=== PATIENT | male | born 1980 | race Hispanic/Latino ===

== ENCOUNTER 2024-12-13 05:52 | Day surgery (SDC) | payer OTHER ==
[2024-12-11 09:20] LABS: BASOPHILS # (AUTO) 0.02 K/uL (0.00-0.20); BASOPHILS % (AUTO) 0.3 % (0.0-5.0); EOSINOPHILS # (AUTO) 0.18 K/uL (0.00-0.70); EOSINOPHILS % (AUTO) 2.9 % (0.0-8.0); HEMATOCRIT 48.3 % (42-54); IMMATURE GRANULOCYTE ABSOLUTE 0.03 K/uL (0-1); LYMPHOCYTES # (AUTO) 2.4 K/uL (1.0-4.8); LYMPHOCYTES % (AUTO) 38.3 % (21.0-51.0); MEAN CORPUSCULAR HEMOGLOBIN 28.7 pg (27.0-33.0); MEAN CORPUSCULAR HGB CONC 31.3 g/dL (32.0-36.0); MEAN CORPUSCULAR VOLUME 91.7 fL (79-99); MONOCYTES # (AUTO) 0.5 K/uL (0.1-1.0); MONOCYTES % (AUTO) 7.3 % (3.0-13.0); NEUTROPHILS # (AUTO) 3.1 K/uL (1.8-7.7); NEUTROPHILS % (AUTO) 50.7 % (40.0-77.0); PLATELET COUNT (AUTO) 132 K/uL (130-400); RED BLOOD CELL COUNT(AUTO) 5.27 MIL/uL (4.50-6.20); RED CELL DISTRIBUTION WIDTH 13.8 % (11.0-15.5); WHITE BLOOD COUNT (AUTO) 6.2 K/uL (4.8-10.8)
--- NOTE | 2024-12-11 09:23 | EKG ---
[facility] Test Date: 2024-12-11 Test Time: 09:06:57 Pat Name: FIDELIA YODER Department: [facility] Room: Gender: M Core Dipper: [id number] : 1980 Requested By: TAMERA CARDONA Order Number: [id number] Reading MD: Adelso Matthew Measurements Intervals [place] Rate: 63 P: 24 KS: 163 QRS: 35 QRSD: 94 T: 45 QT: 408 QTc: 419 Interpretive Statements Sinus rhythm No previous ECG available for comparison Electronically Signed On 12-11-2024 17:34:31 CDT by Adelso Matthew Please click the below link to view image of tracing.
[2024-12-11 09:27] VITALS: BP 118/72; PULSE 64; RESP 17; TEMP 97.5
[2024-12-11 09:35] LABS: INR 1.07 (0.85-1.15); PROTHROMBIN TIME 11.3 SEC (9.6-11.6)
[2024-12-11 09:36] LABS: PARTIAL THROMBOPLASTIN TIME 30.8 SEC (26.3-35.5)
[2024-12-11 09:41] LABS: POTASSIUM 5.2 mmol/L (3.5-5.1)
[2024-12-11 09:44] LABS: APPEARANCE,URINE CLEAR (CLEAR); BILIRUBIN,URINE NEGATIVE (NEGATIVE); COLOR,URINE LIGHT-YELLOW (YELLOW); GLUCOSE, URINE (UA) >=1000 mg/dL (NEGATIVE); KETONES,URINE NEGATIVE (NEGATIVE); LEUKOCYTE ESTERASE ,URINE NEGATIVE Leu/uL (NEGATIVE); NITRATE,URINE NEGATIVE (NEGATIVE); OCCULT BLOOD,URINE NEGATIVE (NEGATIVE); PH,URINE 6.5 (5.0-8.0); PROTEIN,URINE NEGATIVE (NEGATIVE); UROBILINOGEN,URINE 0.2 mg/dL (0.2-1.0)
[2024-12-11 09:47] LABS: ADD UA MICROSCOPIC YES
[2024-12-11 10:00] LABS: B-TYPE NATRIURETIC PEPTIDE 6 pg/mL (0-100)
[2024-12-11 10:02] LABS: RBC,URINE 0-1 /HPF (0-1); SQUAMOUS EPITHELIAL CELL,UR RARE /HPF (0-2); WBC,URINE 0-1 /HPF (0-1)
--- NOTE | 2024-12-11 10:41 | HMCIMG ---
Exam Type: CHEST 1VW Clinical Information: PREOP Comparison: None Findings: Well-circumscribed slightly dense nodule left mid lung periphery seen, probably benign. One-year follow-up recommended. The lungs are clear of infiltrates. The heart is normal in size. The bony and soft tissue structures of the chest are unremarkable. Impression: Well-circumscribed slightly dense nodule left mid lung periphery seen, probably benign. One-year follow-up recommended.
[~2024-12-13] VITALS: Ht 162.6 cm; Wt 110.8 kg
[2024-12-13] VITALS (10 sets, daily range): BP systolic 100–108; BP diastolic 56–70; PULSE 58–69; RESP 12–17; TEMP 97–97.5
[~2024-12-13 05:52] MED LIST: ASPI-1443 PO; ATOR40TA69 PO; DOXY100T2 PO; EMPA25TA PO; EZET10TA48 PO; FENO145T26 PO; INSU100I3 SQ; INSU100V37 SQ; LISI2.5T13 PO; METO-408 PO; PIOG30TA70 PO
[2024-12-13] MEDS ORDERED: 0.9%NACL 1000ML 1,000 ML IV SCH ×2 (06:30→10:00)
[2024-12-13] MEDS ORDERED: IOHEXOL 350 MG/ML 100ML INFUS..BTL IV ONE (07:04)
[2024-12-13] MEDS ORDERED: LIDOCAINE HCL 400MG/20ML VIAL ONE (07:04)
[2024-12-13] MEDS ORDERED: NITROGLYCERIN 50MG VIAL ONE (07:05)
[2024-12-13] MEDS ORDERED: HEParin 10,000 UNIT/10ML (1,000 UNIT/ML) VIAL ONE (07:05)
[2024-12-13] MEDS ORDERED: HEParin-NS 1,000 UNIT/500 ML 1,000 ML IV ONE (07:05)
[2024-12-13] MEDS ORDERED: niCARDIpine 25MG INJ IV ONE (07:29)
[2024-12-13] MEDS ORDERED: FENTanyl CITRate PF 50 MCG/1 ML 2ML VIAL ONE (07:38)
[2024-12-13] MEDS ORDERED: MIDAZOLAM HCL 1 MG/ML 2ML VIAL ONE (07:39)
[2024-12-13] MEDS ORDERED: ASPIRIN 325MG EC TAB PO ONE (08:41)
[2024-12-13] MEDS ORDERED: cloPIDOgrel 300MG TAB ONE (08:42)
[2024-12-13] MEDS ORDERED: HEParin-NS 1,000 UNIT/500 ML 500 ML IV ONE (08:52)
[2024-12-13] MEDS ORDERED: IOHEXOL-350 50ML VIAL IV ONE (09:03)
--- NOTE | 2024-12-13 09:47 | PRN ---
PROCEDURE NOTE Indications: Chest pain, CCS III symptoms HTN HLP Strong family history of heart disease Procedures: LHC, coronary angiogram, PCI with balloon angioplasty and LILA placement in the proximal LAD, OCT assessment pre and post stent deployment Introduction: After informed written consent was obtained, the patient was brought to the Catheterization Lab in the usual fasting state. Following sterile prep and drape, a time out was performed, then moderate sedation was administered, 1mg of Versed and 50mcg of Fentanyl, then 1% Lidocaine was infiltrated into the right wrist. Using a Modified Seldinger technique, a 6Fr Sheath was inserted into the right radial artery. While under fluoroscopic guidance, diagnostic coronary catheters were advanced over a wire into the central circulation where they were aspirated, flushed and placed to pressure monitoring, once the wire was removed. Coronary Angio: The left and right coronary arteries were engaged with appropriate catheters and angiography was performed under continuous pressure monitoring. Left Heart Catheterization: A JR4 catheter was inserted into the LV and the pressure was recorded, then the catheter was removed from the LV. Cardiac Findings: Right dominant system LM: Large caliber vessel with mild luminal irregularities. The vessel bifurcates into the LAD and LCX. LAD: Large caliber vessel with 80% stenosis in the proximal LAD. 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 NADIA three blood flow distally. Diagonal 1: Medium caliber vessel with mild luminal irregularities. Diagonal 2: Medium caliber vessel with mild luminal irregularities LCx: Medium caliber vessel with 20% stenosis in the mid LCX. The rest of the vessel has mild luminal irregularities. OM1: Small caliber vessel with mild luminal irregularities. OM2: Medium caliber vessel with mild luminal irregularities RCA: Large caliber vessel with 40% stenosis in the proximal and mid RCA. There is diffuse 30-40% stenosis in the distal RCA. RPDA: Large caliber vessel with mild luminal irregularities. RPLV: Medium caliber vessel with mild luminal irregularities. LVEDP: 18mmHg Medications given: Versed 2mg, Fentanyl 75mcg, nicardipine 600mcg, nitroglycerin 200mcg, clopidogrel 600 mg x 1 dose, aspirin three and 25 mg x 1 dose, heparin 5000 units IV x1 dose Coronary Intervention: Guide catheter: XB 3.5 Guidewire: 0.014 runthrough guidewire After reviewing the above-mentioned findings the decision was made to intervene on the LAD. The XB 3.5 guide catheter was advanced into the ostium of the left main. We then advanced the 0.014 runthrough guidewire across the area stenosis and into the distal LAD. We then performed balloon angioplasty (3.0 x 12 mm) in the proximal LAD. We then performed OCT assessment of the proximal LAD. We then performed successful LILA placement ([employer]onic dandre [place] 3.5 x 18 mm) in the proximal LAD. The stent was post dilated using an NC 4.0 x 12 mm balloon achieving optimal results. We then repeated OCT of the proximal LAD which revealed a well expanded stent in the proximal LAD. The OCT catheter, guidewire and guide catheter were then removed. The patient tolerated the procedure well without issue. Complications: None Conscious Sedation Monitoring: Under my direct order and supervision, medication for moderate conscious sedation was administered by the nursing staff and the patients level of consciousness and physiological status was monitored by an independent trained nurse. Closure of Access Site: After the case completed the sheath was pulled and a TR band was deployed on the right radial artery without complication. Conclusion: 1. 1V CAD, 80% stenosis in the proximal LAD status post successful treatment with balloon angioplasty and LILA placement ([employer] dandre [place] 3.5 x 18 mm). The stent was post dilated using an NC 4.0 by 12 mm balloon achieving optimal results 2. Chest pain, CCS III symptoms 3. Nonobstructive CAD in the LCX and RCA 4. HTN 5. HLP Recommendation: 1. Continue goal directed medical therapy 2. Start clopidogrel 75 mg daily. Continue aspirin 81 mg daily. The patient will remain on DAPT for a minimum of six months and optimally one year. 3. Wrist precautions F. Please an act TR band removal protocol. 5. Start NS at 100 mL/hour x3 hours. 6. Okay to DC once the TR band removal protocol has been completed in the right wrist is soft, free of bruising, bleeding, and or hematoma formation. 7. No driving for the next 48 hours. 8. No heavy lifting or strenuous exercise for the next two weeks. 9. Please have the patient follow up with Dr. Humphreys in 1-2 weeks. TAMERA HUMPHREYS MD Dec 13, 2024 09:47
[2024-12-13] MEDS ORDERED: GLUCAGON 1MG KIT 1 MG ML IM PRN (10:00)
[2024-12-13] MEDS ORDERED: DEXTROSE 50%-WATER 50 ML DISP.SYRIN IV PRN (10:00)
[2024-12-13] MEDS ORDERED: CLOP75TA32 PO (10:21)
[2024-12-13] MEDS: ondanSETRON 4MG INJ ONE (11:22)
[2024-12-13] MEDS ORDERED: ondanSETRON 4MG INJ IVP ONE (11:30)
--- NOTE | 2024-12-13 12:35 | NUR ---
VASBAND REMOVED AT THIS TIME VSS NAD. RIGHT RADIAL SITE ASYMPTOMATIC
--- NOTE | 2024-12-13 13:00 | NUR ---
BOTH PT AND GIVEN VERBAL AND WRITTEN DISCHARGE INSTRUCTIONS. IV REMOVED SITE ASYMPTOMATIC. RIGHT RADIAL SITE ASYMPTOMATIC PT TAKEN OUT VIA WHEELCHAIR DRIVING
== END 2024-12-13 13:10 | disposition home or self-care (01) ==
LOC: DAH 05:52
PROVIDERS: ATTEND Internal Medicine Cardiovascular Disease
DX: R07.9 Chest pain, unspecified (principal); I25.118 Atherosclerotic heart disease of native coronary artery with other forms of angina pectoris; I10 Essential (primary) hypertension; E78.5 Hyperlipidemia, unspecified; E11.9 Type 2 diabetes mellitus without complications; K21.9 Gastro-esophageal reflux disease without esophagitis; Z90.49 Acquired absence of other specified parts of digestive tract; Z79.82 Long term (current) use of aspirin; Z79.899 Other long term (current) drug therapy
CPT/HCPCS: 80048; 83880; 85025; 85610; 85730; 81001; 36415; 71045; 93005; 92978; 85347 ×2; 82948 ×2; 93458; 99157 ×4; 99156; C9600; C1769 ×2; C1725 ×2; C1874; C1894; A4649; C1887; J3010; J3490 ×3; J1644 ×3; J2250; J2405; Q9967 ×2; A4215; A4222; A4221; A4663; A4216; Q9965 ×2; A4223 ×3; 96360; 96361